=== PATIENT | female | born 1960 | race Caucasian/White ===

== ENCOUNTER → 2017-07-07 | Outpatient (CLI) | payer BC ==
[2017-07-07 10:31] LABS: BUN 12 mg/dL (7-18)
[2017-07-07 10:33] LABS: GFR (ESTIMATED) 87 ML/MIN (59-)
== END ==
LOC: LAB 09:03
PROVIDERS: Physician Assistant Medical
DX: Z79.899 Other long term (current) drug therapy (principal)